=== PATIENT | male | born 1970 | race Caucasian/White ===

== ENCOUNTER 2018-01-19 13:02 | Inpatient (IN) | payer SELFPAY ==
[~2018-01-19] VITALS: Ht 165.1 cm; Wt 95.3 kg
[2018-01-19 13:07] VITALS: BP 142/88
[2018-01-19] MEDS ORDERED: NACL 0.9% 1,000 ML IV ONE (14:30)
[2018-01-19 14:42] LABS: BASOPHILS % (AUTO) 0.4 % (0.0-2.0); EOSINOPHILS % (AUTO) 0.8 % (0.0-4.0); HEMATOCRIT 44.6 % (36-52); HEMOGLOBIN 14.8 g/dL (12.0-18.0); LYMPHOCYTES # (AUTO) 1.8 K/uL (2.0-11.5); LYMPHOCYTES % (AUTO) 33.7 % (20.5-51.1); MEAN CORPUSCULAR HEMOGLOBIN 30 pg (27-31); MEAN CORPUSCULAR HGB CONC 33 g/dL (33-37); MEAN CORPUSCULAR VOLUME 90.6 fL (80-94); MONOCYTES # (AUTO) 0.3 K/uL (0.8-1.0); MONOCYTES % (AUTO) 6.1 % (1.7-9.3); NEUTROPHILS # (AUTO) 3.2 K/uL (1.8-7.7); PLATELET COUNT (AUTO) 183 K/uL (140-450); RED BLOOD CELL COUNT(AUTO) 4.93 MIL/uL (4.20-6.10); RED CELL DISTRIBUTION WIDTH 13.5 % (11.6-13.7); WHITE BLOOD COUNT (AUTO) 5.5 K/uL (4.8-10.8)
[2018-01-19 14:57] LABS: ANION GAP 15.5 (8-16); CARBON DIOXIDE 22.3 mmol/L (21-32); CREATININE 0.8 mg/dL (0.7-1.3); POTASSIUM 3.8 mmol/L (3.5-5.1)
[2018-01-19 15:02] LABS: PROTHROMBIN TIME 9.7 secs (10.8-13.4)
[2018-01-19 15:03] LABS: ALBUMIN 3.4 g/dL (3.4-5.0); TOTAL BILIRUBIN 0.3 mg/dL (0.0-1.0)
[2018-01-19] MEDS: NACL 0.9% 1,000 ML IV SCH (16:14)
[2018-01-19] MEDS ORDERED: ONDANSETRON 4 MG/2 ML VIAL IM/IVP PRN (16:15)
[2018-01-19] MEDS ORDERED: HYDROcodone/APAP 5/325 MG 1 TAB TAB PO PRN (16:15)
[2018-01-19] MEDS ORDERED: ZOLPIDEM 5 MG TAB PO PRN (16:15)
[2018-01-19] MEDS ORDERED: DOCUSATE SODIUM 100 MG GELCAP PO PRN (16:15)
[2018-01-19] MEDS ORDERED: ACETAMINOPHEN 325 MG TAB PO PRN (16:15)
[2018-01-19] MEDS ORDERED: NITROGLYCERIN 0.4 MG TAB SL PRN (16:20)
[2018-01-19 16:35] VITALS: BP 150/83
[2018-01-19 16:49] LABS: CHOL/HDL RATIO 4.4 (1-4.5); MAGNESIUM 1.8 mg/dL (1.8-2.4); PHOSPHORUS 2.7 mg/dL (2.5-4.9); THYROID STIMULATING HORMONE 3.17 uIU/mL (0.34-3.74)
[2018-01-19] MEDS ORDERED: ASPI81CT89 PO (17:14)
[2018-01-19] MEDS ORDERED: GLIP10TA3 PO (17:16)
[2018-01-19] MEDS ORDERED: LISI10TA11 PO (17:16)
[2018-01-19] MEDS ORDERED: PIOG15TA25 PO (17:16)
[2018-01-19] MEDS ORDERED: METF1000 PO (17:16)
[2018-01-19] MEDS ORDERED: ATOR40TA PO (17:16)
[2018-01-19] MEDS ORDERED: INSULIN LISPRO SLIDING SCALE 100 UNITS/ML VIAL SUBQ PRN (17:45)
[2018-01-19] MEDS: BLOOD GLUCOSE MONITORING 1 DEV DEV FS SCH (20:42)
[2018-01-19] MEDS: glipiZIDE 10 MG TAB PO SCH (21:00)
[2018-01-19] MEDS: metFORMIN 500 MG TAB PO SCH (21:00)
[2018-01-19] MEDS: METOPROLOL 25 MG TAB PO SCH (21:00)
[2018-01-19 22:25] VITALS: BP 121/54
[2018-01-20 04:27] VITALS: BP 139/84
[2018-01-20 05:53] LABS: BASOPHILS % (AUTO) 0.5 % (0.0-2.0); EOSINOPHILS # (AUTO) 0.1 K/uL (0-0.4); EOSINOPHILS % (AUTO) 1.7 % (0.0-4.0); HEMATOCRIT 41.5 % (36-52); HEMOGLOBIN 13.7 g/dL (12.0-18.0); LYMPHOCYTES # (AUTO) 2.7 K/uL (2.0-11.5); LYMPHOCYTES % (AUTO) 49.2 % (20.5-51.1); MEAN CORPUSCULAR HEMOGLOBIN 30 pg (27-31); MEAN CORPUSCULAR HGB CONC 33 g/dL (33-37); MEAN CORPUSCULAR VOLUME 91.6 fL (80-94); MONOCYTES # (AUTO) 0.3 K/uL (0.8-1.0); MONOCYTES % (AUTO) 5.9 % (1.7-9.3); NEUTROPHILS # (AUTO) 2.3 K/uL (1.8-7.7); NEUTROPHILS % (AUTO) 42.7 % (42.2-75.2); PLATELET COUNT (AUTO) 168 K/uL (140-450); RED BLOOD CELL COUNT(AUTO) 4.53 MIL/uL (4.20-6.10); RED CELL DISTRIBUTION WIDTH 13.5 % (11.6-13.7); WHITE BLOOD COUNT (AUTO) 5.4 K/uL (4.8-10.8)
[2018-01-20] MEDS: NACL 0.9% 1,000 ML IV SCH (05:54)
[2018-01-20] MEDS: BLOOD GLUCOSE MONITORING 1 DEV DEV FS SCH (05:54)
[2018-01-20 06:38] LABS: ANION GAP 11.2 (8-16); CARBON DIOXIDE 26.8 mmol/L (21-32); CREATININE 0.8 mg/dL (0.7-1.3)
[2018-01-20 08:00] VITALS: BP 131/84
[2018-01-20 08:33] LABS: T4 (THYROXINE) 7.1 ug/dL (4.5-12.0)
[2018-01-20] MEDS ORDERED: ASPIRIN 81 MG TAB.CHEW PO SCH (09:00)
[2018-01-20] MEDS ORDERED: LISINOPRIL 10 MG TAB PO SCH ×2 (09:00)
[2018-01-20] MEDS ORDERED: ATORVASTATIN 20 MG TAB PO SCH (09:00)
[2018-01-20] MEDS: glipiZIDE 10 MG TAB PO SCH (09:55)
[2018-01-20] MEDS: metFORMIN 500 MG TAB PO SCH (09:56)
[2018-01-20] MEDS: METOPROLOL 25 MG TAB PO SCH (09:56)
[2018-01-20] MEDS ORDERED: PNEUMOCOCCAL VACCINE 23 MCG/0.5 ML VIAL IMVAC SCH (11:25)
== END 2018-01-20 11:30 | disposition home or self-care (01) | DRG 74 ==
LOC: MED 13:02 → MTU 16:12
PROVIDERS: ADMIT General Practice; ATTEND General Practice
DX: G90.9 Disorder of the autonomic nervous system, unspecified (principal); E44.1 Mild protein-calorie malnutrition; M94.0 Chondrocostal junction syndrome [Tietze]; A08.4 Viral intestinal infection, unspecified; I10 Essential (primary) hypertension; E83.51 Hypocalcemia; E11.65 Type 2 diabetes mellitus with hyperglycemia; E78.5 Hyperlipidemia, unspecified; Z68.34 Body mass index [BMI] 34.0-34.9, adult; Z90.49 Acquired absence of other specified parts of digestive tract; Z79.82 Long term (current) use of aspirin; Z79.84 Long term (current) use of oral hypoglycemic drugs; Z79.899 Other long term (current) drug therapy; R55 Syncope and collapse
CPT/HCPCS: 36415; 70450; 71045; 80048; 80053; 82150; 82948; 83036; 83690; 83735; 83880; 84100; 84436; 84443; 84479; 84484; 85025; 85610; 85730; 87081; 90732; 93005; 93880; 96360; 99285; J1815; J7030; Q0092

== ENCOUNTER 2023-11-12 14:49 | Emergency (ER) | payer OTHER ==
[~2023-11-12] VITALS: Ht 167.6 cm; Wt 99.8 kg
[~2023-11-12 14:49] MED LIST: ASPI-1822 PO; ATOR40TA PO; GLIP10TA3 PO; LISI-486 PO; METF-1274 PO; RANI300T6 PO
[2023-11-12 15:05] VITALS: BP 143/72; PULSE 75; RESP 16; TEMP 98.1; O2SAT 98
[2023-11-12 15:15] LABS: BASOPHILS # (AUTO) 0.1 K/uL (0.00-0.22); EOSINOPHILS # (AUTO) 0.1 K/uL (0-0.4); EOSINOPHILS % (AUTO) 1.4 % (0.0-4.0); HEMOGLOBIN 14.5 g/dL (12.0-18.0); LYMPHOCYTES # (AUTO) 2.3 K/uL (2.0-11.5); LYMPHOCYTES % (AUTO) 38.7 % (20.5-51.1); MEAN CORPUSCULAR HEMOGLOBIN 31 pg (27-31); MEAN CORPUSCULAR HGB CONC 34 g/dL (33-37); MEAN CORPUSCULAR VOLUME 91.1 fL (80-94); MONOCYTES # (AUTO) 0.4 K/uL (0.8-1.0); MONOCYTES % (AUTO) 6.9 % (1.7-9.3); PLATELET COUNT (AUTO) 216 K/uL (140-450); RED BLOOD CELL COUNT(AUTO) 4.61 MIL/uL (4.20-6.10); RED CELL DISTRIBUTION WIDTH 13.5 % (11.6-13.7); WHITE BLOOD COUNT (AUTO) 5.8 K/uL (4.8-10.8)
[2023-11-12] MEDS: KETOROLAC 30 MG/ML VIAL IVP ONE (15:15)
[2023-11-12] MEDS: NACL 0.9% 1,000 ML IV ONE (15:16)
[2023-11-12] MEDS: ONDANSETRON 4 MG/2 ML VIAL IVP ONE (15:16)
[2023-11-12 15:18] LABS: APPEARANCE,URINE CLEAR (CLEAR); BILIRUBIN,URINE NEGATIVE (NEGATIVE); BLOOD, URINE NEGATIVE (NEGATIVE); COLOR,URINE YELLOW (YELLOW); LEUKOCYTE ESTERASE ,URINE NEGATIVE (NEGATIVE); NITRITE, URINE NEGATIVE (NEGATIVE); PROTEIN,URINE 2+ (NEGATIVE); UGLUCOSE TRACE (NEGATIVE)
[2023-11-12 15:28] LABS: ANION GAP 15.1 (8-16); CALCIUM 8.8 mg/dL (8.5-10.1); CARBON DIOXIDE 24.5 mmol/L (21-32); CREATININE 1.1 mg/dL (0.6-1.3); POTASSIUM 4.6 mmol/L (3.5-5.1)
[2023-11-12 15:38] LABS: ALANINE AMINOTRANSFERASE 39 U/L (12-78); ALBUMIN 3.7 g/dL (3.4-5.0); ALKALINE PHOSPHATASE 101 U/L (50-136); ASPARTATE AMINOTRANSFERASE 17 U/L (15-37); BILIRUBIN,DIRECT 0.1 mg/dL (0.0-0.3); LIPASE 33 U/L (16-77); TOTAL BILIRUBIN 0.5 mg/dL (0.0-1.0); TOTAL PROTEIN, SERUM 7.1 g/dL (6.4-8.2)
[2023-11-12] MEDS ORDERED: AMOX1TAB8 PO (17:09)
[2023-11-12] MEDS ORDERED: AZIT250T3 PO (17:09)
[2023-11-12] MEDS ORDERED: ACET-10509 PO (17:09)
[2023-11-12] MEDS ORDERED: ONDA-188 PO (17:09)
[2023-11-12 17:31] VITALS: BP 140/65; PULSE 71; RESP 16; TEMP 98; O2SAT 96
== END 2023-11-12 17:28 | disposition home or self-care (01) ==
LOC: MED 14:49
DX: J18.9 Pneumonia, unspecified organism (principal); R11.2 Nausea with vomiting, unspecified; R10.32 Left lower quadrant pain; R30.0 Dysuria; R51.9 Headache, unspecified; R42 Dizziness and giddiness; E11.9 Type 2 diabetes mellitus without complications; I10 Essential (primary) hypertension; E78.5 Hyperlipidemia, unspecified; Z90.49 Acquired absence of other specified parts of digestive tract; Z79.899 Other long term (current) drug therapy; Z79.82 Long term (current) use of aspirin
CPT/HCPCS: 36415; 71045; 74176; 80048; 80076; 81003; 83690; 84484; 85025; 93005; 96361; 96374; 96375; 99285; J1885; J2405; J7030; Q0092